=== PATIENT | male | born 1950 | race Caucasian/White ===

== ENCOUNTER 2018-03-08 11:59 | Inpatient (IN) | payer OTHER, MEDICARE ==
[~2018-03-08] VITALS: Ht 167.6 cm; Wt 135.6 kg
[2018-03-08] MEDS ORDERED: SG ASA LOW81 M1 PO (16:08)
[2018-03-08] MEDS ORDERED: CARVEDILOL25 MG PO ×2 (16:09)
[2018-03-08] MEDS ORDERED: LOSARTAN POT100 MG PO (16:10)
[2018-03-08] MEDS ORDERED: ATORVASTATIN CA80 MG PO (16:10)
[2018-03-08] MEDS ORDERED: ALLOPURINOL100 MG PO (16:11)
[2018-03-08] MEDS ORDERED: FUROSEMIDE40 MG PO (16:11)
[2018-03-08] MEDS ORDERED: HYDROCODONE/ACE1 TAB PO (16:15)
[2018-03-15] VITALS (9 sets, daily range): BP systolic 107–144; BP diastolic 40–77
[2018-03-16] VITALS (8 sets, daily range): BP systolic 91–180; BP diastolic 54–72
[2018-03-16 04:46] LABS: HEMATOCRIT 39.8 % (39.0-50.0); HEMOGLOBIN 12.5 g/dl (14.0-18.0)
[2018-03-16 08:38] LABS: ANION GAP 12 (6-22 (CALC)); BUN 22 mg/dL (8-23); BUN/CREATININE RATIO 18 (12-20 (CALC)); CARBON DIOXIDE 29 mmol/l (22-30); CHLORIDE 101 mmol/l (95-108); CREATININE 1.2 mg/dL (0.7-1.3); GFR > 60 ML/MIN (>=60 (CALC)); GFR FOR AFR.AMER. > 60 ML/MIN (>=60 (CALC)); MAGNESIUM 1.7 mg/dL (1.6-2.3); POTASSIUM 4.5 mmol/l (3.5-5.1); SODIUM 138 mmol/l (137-146)
[2018-03-17 04:25] LABS: HEMATOCRIT 34.5 % (39.0-50.0); HEMOGLOBIN 11.1 g/dl (14.0-18.0)
[2018-03-17 04:51] LABS: CREATININE 1.6 mg/dL (0.7-1.3); MAGNESIUM 1.7 mg/dL (1.6-2.3); POTASSIUM 4.5 mmol/l (3.5-5.1)
[2018-03-17 05:11] VITALS: BP 107/57
[2018-03-17 08:57] VITALS: BP 93/56
[2018-03-17 12:35] VITALS: BP 98/66
[2018-03-17 17:00] VITALS: BP 119/61
[2018-03-17 19:05] VITALS: BP 120/60
[2018-03-18 00:25] VITALS: BP 114/58
[2018-03-18 04:49] VITALS: BP 84/56
[2018-03-18 05:07] LABS: HEMATOCRIT 28.9 % (39.0-50.0); HEMOGLOBIN 9.2 g/dl (14.0-18.0); IMMATURE GRANULOCYTES 0.5 % (0.0-1.0); MEAN CELL VOLUME 92.3 fL CALC (80.0-100.0); MEAN CORPUSCULAR HGB 29.4 pG CALC (26.0-32.0); MEAN CORPUSCULAR HGB CONC 31.8 g/L CALC (32.0-36.0); NEUT# 5.48 thou/uL (1.82-7.42); RED BLOOD COUNT 3.13 mill/uL (4.70-6.10); RED CELL DISTRI WIDTH 13.2 % (11.5-15.5)
[2018-03-18 05:24] LABS: ANION GAP 8 (6-22 (CALC)); BUN 20 mg/dL (8-23); BUN/CREATININE RATIO 15 (12-20 (CALC)); CARBON DIOXIDE 27 mmol/l (22-30); CHLORIDE 104 mmol/l (95-108); CREATININE 1.3 mg/dL (0.7-1.3); GFR 55 ML/MIN (>=60 (CALC)); GFR FOR AFR.AMER. > 60 ML/MIN (>=60 (CALC)); MAGNESIUM 1.8 mg/dL (1.6-2.3); SODIUM 135 mmol/l (137-146)
[2018-03-18 09:18] VITALS: BP 103/51
[2018-03-18 11:13] VITALS: BP 96/64
[2018-03-18 15:27] VITALS: BP 112/62
[2018-03-18 22:34] VITALS: BP 127/73
[2018-03-19 04:19] VITALS: BP 114/57
[2018-03-19 06:04] LABS: HEMATOCRIT 27.9 % (39.0-50.0); IMMATURE GRANULOCYTES 0.4 % (0.0-1.0); MEAN CELL VOLUME 91.8 fL CALC (80.0-100.0); MEAN CORPUSCULAR HGB 29.6 pG CALC (26.0-32.0); MEAN CORPUSCULAR HGB CONC 32.3 g/L CALC (32.0-36.0); NEUT# 4.85 thou/uL (1.82-7.42); RED BLOOD COUNT 3.04 mill/uL (4.70-6.10); RED CELL DISTRI WIDTH 13.4 % (11.5-15.5)
[2018-03-19 06:21] LABS: ANION GAP 8 (6-22 (CALC)); BUN 15 mg/dL (8-23); BUN/CREATININE RATIO 14 (12-20 (CALC)); CARBON DIOXIDE 28 mmol/l (22-30); CHLORIDE 106 mmol/l (95-108); CREATININE 1.1 mg/dL (0.7-1.3); GFR > 60 ML/MIN (>=60 (CALC)); GFR FOR AFR.AMER. > 60 ML/MIN (>=60 (CALC)); MAGNESIUM 2.1 mg/dL (1.6-2.3); SODIUM 138 mmol/l (137-146)
[2018-03-19 08:23] VITALS: BP 115/54
[2018-03-19 09:47] VITALS: BP 115/54
[2018-03-19] MEDS ORDERED: HYDROCODONE/ACE1 TAB PO (11:56)
[2018-03-19] MEDS ORDERED: GLYCOLAX3350 N1 PO (11:56)
[2018-03-19] MEDS ORDERED: SURFAK240 MG/CAP PO (11:56)
[2018-03-19] MEDS ORDERED: ASPIRIN EC325 MG PO (11:56)
== END 2018-03-19 16:10 | DRG 470 ==
LOC: MS2 03-15 06:02 → EDUNIT# 03-15 07:30 → MS2 03-15 08:15
PROVIDERS: Nurse Practitioner Family; ADMIT Orthopaedic Surgery; ATTEND Orthopaedic Surgery
PROC: 0SRC0J9 Replacement of Right Knee Joint with Synthetic Substitute, Cemented, Open Approach (ICD-10-PCS; principal; 2018-03-15)
DX: M17.31 Unilateral post-traumatic osteoarthritis, right knee (principal); N17.9 Acute kidney failure, unspecified; Z68.42 Body mass index [BMI] 45.0-49.9, adult; M87.251 Osteonecrosis due to previous trauma, right femur; S89.91XS Unspecified injury of right lower leg, sequela; W01.0XXS Fall on same level from slipping, tripping and stumbling without subsequent striking against object, sequela; I11.0 Hypertensive heart disease with heart failure; I50.9 Heart failure, unspecified; E78.5 Hyperlipidemia, unspecified; M10.9 Gout, unspecified; F12.90 Cannabis use, unspecified, uncomplicated; L29.8 Other pruritus; T40.605A Adverse effect of unspecified narcotics, initial encounter; E86.0 Dehydration; I95.9 Hypotension, unspecified; R00.0 Tachycardia, unspecified; Z96.652 Presence of left artificial knee joint
CPT/HCPCS: J1756; J2270